=== PATIENT | female | born 1980 | race Caucasian/White ===

== ENCOUNTER 2020-02-11 06:26 | Inpatient (IN) | payer OTHER ==
[~2020-02-11] VITALS: Ht 180.3 cm; Wt 76.2 kg
== END 2020-02-12 15:50 | disposition home or self-care (01) | DRG 806 ==
LOC: LDR 06:26 → OB/GYN 02-12 02:59
PROVIDERS: ADMIT Specialist
PROC: 3E0P7VZ Introduction of Hormone into Female Reproductive, Via Natural or Artificial Opening (ICD-10-PCS; 2020-02-11)
PROC: 10D17Z9 Manual Extraction of Products of Conception, Retained, Via Natural or Artificial Opening (ICD-10-PCS; 2020-02-12)
PROC: 10E0XZZ Delivery of Products of Conception, External Approach (ICD-10-PCS; principal; 2020-02-12 07:00)
DX: O03.4 Incomplete spontaneous abortion without complication (principal); O72.0 Third-stage hemorrhage; Z37.1 Single stillbirth; Z3A.26 26 weeks gestation of pregnancy; O43.212 Placenta accreta, second trimester